=== PATIENT | female | born 1975 ===

== ENCOUNTER 2019-10-30 12:05 | Emergency (ER) | payer MEDICARE ==
[~2019-10-30] VITALS: Ht 160 cm; Wt 81.6 kg
[2019-10-30] MEDS ORDERED: ASPIRIN 81 MG CHEW TAB PO ONE (12:45)
[2019-10-30 13:20] LABS: BASOPHILS % 0.1 % (0.0-1.0); EOSINOPHILS # (AUTO) 0.1 (0.0-0.4); EOSINOPHILS % 0.7 % (0.0-6.0); HEMATOCRIT 27.7 % (34.2-44.1); HEMOGLOBIN 8.4 g/dL (12.0-16.0); LYMPHOCYTES # (AUTO) 1.4 (1.0-3.2); LYMPHOCYTES % 13.2 % (18.0-39.1); MEAN CORPUSCULAR HGB CONC 30.3 g/dL (31-35); MEAN CORPUSCULAR VOLUME 92.3 fL (81-99); MONOCYTES # (AUTO) 1.1 (0.2-0.8); MONOCYTES % 11.1 % (4.4-11.3); NEUTROPHILS # (AUTO) 7.5 (2.1-6.9); NEUTROPHILS % 73.1 % (38.7-80.0); PLATELET COUNT 266 x10e3/uL (140-360); RED CELL DISTRIBUTION WIDTH 14.6 % (11.7-14.4)
[2019-10-30 13:30] LABS: INR 0.85; PROTHROMBIN TIME 12.1 seconds (11.9-14.5)
--- NOTE | 2019-10-30 13:31 | Diagnostic Imaging Report ---
Examination: Single AP view of the chest. COMPARISON: None. INDICATION: Chest pain DISCUSSION: The lungs are well inflated. No focal consolidation, pleural effusion, or pneumothorax. Cardiomediastinal contour and pulmonary vasculature are within normal limits when accounting for AP technique. No acute osseous abnormalities. IMPRESSION: 1. No acute cardiopulmonary abnormalities. Signed by: Dr. Spencer Mendez M.D. on 10/30/2019 1:27 PM
[2019-10-30 13:40] LABS: ALBUMIN/GLOBULIN RATIO 0.4 (0.8-2.0); ANION GAP 10.3 mmol/L (8-16); CALCIUM 7.2 mg/dL (8.4-10.2); CREATININE, SERUM 2.05 mg/dL (0.57-1.11); POTASSIUM 3.3 mmol/L (3.5-5.1)
[2019-10-30 13:47] LABS: CREATINE KINASE MB 1.2 ng/mL (0-5.0)
[2019-10-30 14:13] LABS: PARTIAL THROMBOPLASTIN TIME 20.8 seconds (23.8-35.5)
--- NOTE | 2019-10-30 15:20 | Emergency Department Note ---
History of Present Illnes History of Present Illness Chief Complaint: Chest Pain History of Present Illness This is a 44 year old Unknown female c/o numbness and burning sensation to both arms that started last night also c/o chest tightness/pressure (11 hrs ago, constant) denies sob c/o n/v sudden onset states she had a . 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 Any updates have been documented here. Past Medical History Recent Fever: No Clinical Suspicion of Infectio: No New/Unexplained Change in Ment: No Past Medical History: Hypertension, [place], Hyperlipedemia Other Medical History: lupus kidney disease Past Surgical History: Hysterectomy Social History Smoking Cessation: Former smoker Counseling Performed: Yes Alcohol Use: None Any Illegal Drug Use: No TB Exposure/Symptoms: No Physically hurt or threatened: No Family History Family history of heart diseas: No Other Any Pre-Existing Lines (PICC,: No Review of Systems Review of Systems Constitutional: Reports no symptoms EENTM: Reports no symptoms Cardiovascular: Reports as per HPI Respiratory: Reports no symptoms Gastrointestinal: Reports no symptoms Genitourinary: Reports no symptoms Musculoskeletal: Reports as per HPI Integumentary: Reports no symptoms Neurological: Reports no symptoms Psychological: Reports no symptoms Endocrine: Reports no symptoms Hematological/Lymphatic: Reports no symptoms Physical Exam Related Data Allergies: Coded Allergies: lisinopril (Verified Allergy, Unknown, 10/30/19) Triage Vital Signs Vital Signs Date Time Temp Pulse Resp B/P (MAP) Pulse Ox O2 Delivery O2 Flow Rate FiO2 10/30/19 12:24 98.3 84 18 129/91 100 Room Air Vital signs reviewed: Yes Physical Exam CONSTITUTIONAL Constitutional: Present well-developed, Present well-nourished HENT HENT: Present normocephalic, Present atraumatic, Present oropharynx clear/moist, Present nose normal HENT L/R: Present left ext ear normal, Present right ext ear normal EYES Eyes: Reports PERRL, Reports conjunctivae normal NECK Neck: Present ROM normal PULMONARY Pulmonary: Present effort normal, Present breath sounds normal CARDIOVASCULAR Cardiovascular: Present regular rhythm, Present heart sounds normal, Present capillary refill normal, Present normal rate, Present other (reproducible tenderness mid chest) GASTROINTESTINAL Abdominal: Present soft, Present nontender, Present bowel sounds normal GENITOURINARY Genitourinary: Present exam deferred SKIN Skin: Present warm, Present dry MUSCULOSKELETAL Musculoskeletal: Present ROM normal NEUROLOGICAL Neurological: Present alert, Present oriented x 3, Present no gross motor or sensory deficits PSYCHOLOGICAL Psychological: Present mood/affect normal, Present judgement normal Results Laboratory Result Diagram: 10/30/19 1243 10/30/19 1243 Laboratory Laboratory Tests Test 10/30/19 12:43 White Blood Count 10.22 x10e3/uL (4.8-10.8) Red Blood Count 3.00 x10e6/uL (3.6-5.1) Hemoglobin 8.4 g/dL (12.0-16.0) Hematocrit 27.7 % (34.2-44.1) Mean Corpuscular Volume 92.3 fL (81-99) Mean Corpuscular Hemoglobin 28.0 pg (28-32) Mean Corpuscular Hemoglobin Concent 30.3 g/dL (31-35) Red Cell Distribution Width 14.6 % (11.7-14.4) Platelet Count 266 x10e3/uL (140-360) Neutrophils (%) (Auto) 73.1 % (38.7-80.0) Lymphocytes (%) (Auto) 13.2 % (18.0-39.1) Monocytes (%) (Auto) 11.1 % (4.4-11.3) Eosinophils (%) (Auto) 0.7 % (0.0-6.0) Basophils (%) (Auto) 0.1 % (0.0-1.0) Neutrophils # (Auto) 7.5 (2.1-6.9) Lymphocytes # (Auto) 1.4 (1.0-3.2) Monocytes # (Auto) 1.1 (0.2-0.8) Eosinophils # (Auto) 0.1 (0.0-0.4) Basophils # (Auto) 0.0 (0.0-0.1) Absolute Immature Granulocyte (auto 0.18 x10e3/uL (0-0.1) Prothrombin Time 12.1 seconds (11.9-14.5) Prothromb Time International Ratio 0.85 Activated Partial Thromboplast Time 20.8 seconds (23.8-35.5) Sodium Level 142 mmol/L (136-145) Potassium Level 3.3 mmol/L (3.5-5.1) Chloride Level 111 mmol/L (98-107) Carbon Dioxide Level 24 mmol/L (22-29) Anion Gap 10.3 mmol/L (8-16) Blood Urea Nitrogen 42 mg/dL (7-26) Creatinine 2.05 mg/dL (0.57-1.11) Estimat Glomerular Filtration Rate 27 ML/MIN (60-) BUN/Creatinine Ratio 20 (6-25) Glucose Level 89 mg/dL (74-118) Calcium Level 7.2 mg/dL (8.4-10.2) Total Bilirubin 0.1 mg/dL (0.2-1.2) Aspartate Amino Transf (AST/SGOT) 11 IU/L (5-34) Alanine Aminotransferase (ALT/SGPT) 22 IU/L (0-55) Alkaline Phosphatase 48 IU/L (40-150) Creatine Kinase 45 IU/L (29-168) Creatine Kinase MB 1.20 ng/mL (0-5.0) Troponin I 0.020 ng/mL (0-0.300) B-Type Natriuretic Peptide 30.8 pg/mL (0-100) Total Protein 3.6 g/dL (6.5-8.1) Albumin 1.0 g/dL (3.5-5.0) Globulin 2.6 g/dL (2.3-3.5) Albumin/Globulin Ratio 0.4 (0.8-2.0) Lab results reviewed: Yes Imaging Imaging results reviewed: Yes Impressions Examination: Single AP view of the chest. COMPARISON: None. INDICATION: Chest pain DISCUSSION: The lungs are well inflated. No focal consolidation, pleural effusion, or pneumothorax. Cardiomediastinal contour and pulmonary vasculature are within normal limits when accounting for AP technique. No acute osseous abnormalities. IMPRESSION: 1. No acute cardiopulmonary abnormalities. Signed by: Dr. Spencer Mendez M.D. 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 F/U PCP and Dr Tang tomorrow Assessment & Plan Final Impression: (1) Atypical chest pain (2) Anemia (3) CKD (chronic kidney disease) Depart Disposition: HOME, SELF-CARE Last Vital Signs Date Time Temp Pulse Resp B/P (MAP) Pulse Ox O2 Delivery O2 Flow Rate FiO2 10/30/19 13:51 98.4 75 20 138/82 98 10/30/19 12:24 Room Air Medications in the ED Aspirin 81 mg PRN ONCE PO ; Start 10/30/19 at 12:45; Stop 10/30/19 at 12:46; Status DC TIFFANIE RUFFIN MD Oct 30, 2019 15:20
--- NOTE | 2019-10-30 20:13 | Emergency Department Note ---
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 Any updates have been documented here. Past Medical History Recent Fever: No Clinical Suspicion of Infectio: No New/Unexplained Change in Ment: No Past Medical History: Hypertension, [place], Hyperlipedemia Other Medical History: lupus kidney disease Past Surgical History: Hysterectomy Social History Smoking Cessation: Never Smoker Counseling Performed: No Alcohol Use: None Any Illegal Drug Use: No Other Any Pre-Existing Lines (PICC,: No Review of Systems Review of Systems Constitutional: Reports no symptoms EENTM: Reports no symptoms Cardiovascular: Reports as per HPI Respiratory: Reports no symptoms Gastrointestinal: Reports no symptoms Genitourinary: Reports no symptoms Musculoskeletal: Reports as per HPI Integumentary: Reports no symptoms Neurological: Reports no symptoms Psychological: Reports no symptoms Endocrine: Reports no symptoms Hematological/Lymphatic: Reports no symptoms Physical Exam Related Data Allergies: Coded Allergies: lisinopril (Verified Allergy, Unknown, 10/30/19) Triage Vital Signs Vital Signs Date Time Temp Pulse Resp B/P (MAP) Pulse Ox O2 Delivery O2 Flow Rate FiO2 10/30/19 12:24 98.3 84 18 129/91 100 Room Air Vital signs reviewed: Yes Physical Exam CONSTITUTIONAL Constitutional: Present well-developed, Present well-nourished HENT HENT: Present normocephalic, Present atraumatic, Present oropharynx clear/moist, Present nose normal HENT L/R: Present left ext ear normal, Present right ext ear normal EYES Eyes: Reports PERRL, Reports conjunctivae normal NECK Neck: Present ROM normal PULMONARY Pulmonary: Present effort normal, Present breath sounds normal CARDIOVASCULAR Cardiovascular: Present regular rhythm, Present heart sounds normal, Present capillary refill normal, Present normal rate, Present other (reproducible tenderness to chest) GASTROINTESTINAL Abdominal: Present soft, Present nontender, Present bowel sounds normal GENITOURINARY Genitourinary: Present exam deferred SKIN Skin: Present warm, Present dry MUSCULOSKELETAL Musculoskeletal: Present ROM normal NEUROLOGICAL Neurological: Present alert, Present oriented x 3, Present no gross motor or sensory deficits PSYCHOLOGICAL Psychological: Present mood/affect normal, Present judgement normal Results Laboratory Result Diagram: 10/30/19 1243 10/30/19 1243 Laboratory Laboratory Tests Test 10/30/19 12:43 White Blood Count 10.22 x10e3/uL (4.8-10.8) Red Blood Count 3.00 x10e6/uL (3.6-5.1) Hemoglobin 8.4 g/dL (12.0-16.0) Hematocrit 27.7 % (34.2-44.1) Mean Corpuscular Volume 92.3 fL (81-99) Mean Corpuscular Hemoglobin 28.0 pg (28-32) Mean Corpuscular Hemoglobin Concent 30.3 g/dL (31-35) Red Cell Distribution Width 14.6 % (11.7-14.4) Platelet Count 266 x10e3/uL (140-360) Neutrophils (%) (Auto) 73.1 % (38.7-80.0) Lymphocytes (%) (Auto) 13.2 % (18.0-39.1) Monocytes (%) (Auto) 11.1 % (4.4-11.3) Eosinophils (%) (Auto) 0.7 % (0.0-6.0) Basophils (%) (Auto) 0.1 % (0.0-1.0) Neutrophils # (Auto) 7.5 (2.1-6.9) Lymphocytes # (Auto) 1.4 (1.0-3.2) Monocytes # (Auto) 1.1 (0.2-0.8) Eosinophils # (Auto) 0.1 (0.0-0.4) Basophils # (Auto) 0.0 (0.0-0.1) Absolute Immature Granulocyte (auto 0.18 x10e3/uL (0-0.1) Prothrombin Time 12.1 seconds (11.9-14.5) Prothromb Time International Ratio 0.85 Activated Partial Thromboplast Time 20.8 seconds (23.8-35.5) Sodium Level 142 mmol/L (136-145) Potassium Level 3.3 mmol/L (3.5-5.1) Chloride Level 111 mmol/L (98-107) Carbon Dioxide Level 24 mmol/L (22-29) Anion Gap 10.3 mmol/L (8-16) Blood Urea Nitrogen 42 mg/dL (7-26) Creatinine 2.05 mg/dL (0.57-1.11) Estimat Glomerular Filtration Rate 27 ML/MIN (60-) BUN/Creatinine Ratio 20 (6-25) Glucose Level 89 mg/dL (74-118) Calcium Level 7.2 mg/dL (8.4-10.2) Total Bilirubin 0.1 mg/dL (0.2-1.2) Aspartate Amino Transf (AST/SGOT) 11 IU/L (5-34) Alanine Aminotransferase (ALT/SGPT) 22 IU/L (0-55) Alkaline Phosphatase 48 IU/L (40-150) Creatine Kinase 45 IU/L (29-168) Creatine Kinase MB 1.20 ng/mL (0-5.0) Troponin I 0.020 ng/mL (0-0.300) B-Type Natriuretic Peptide 30.8 pg/mL (0-100) Total Protein 3.6 g/dL (6.5-8.1) Albumin 1.0 g/dL (3.5-5.0) Globulin 2.6 g/dL (2.3-3.5) Albumin/Globulin Ratio 0.4 (0.8-2.0) Lab results reviewed: Yes Imaging Imaging results reviewed: Yes Impressions Examination: Single AP view of the chest. COMPARISON: None. INDICATION: Chest pain DISCUSSION: The lungs are well inflated. No focal consolidation, pleural effusion, or pneumothorax. Cardiomediastinal contour and pulmonary vasculature are within normal limits when accounting for AP technique. No acute osseous abnormalities. IMPRESSION: 1. No acute cardiopulmonary abnormalities. Signed by: Dr. Spencer Mendez M.D. on 10/30/2019 1:27 PM Assessment & Plan Medical Decision Making MDM CHECK ECG LABS R/O STEMI/NSTEMI Reassessment Reassessment [facility], F/U PCP & CARDIOLOGY Assessment & Plan Final Impression: (1) Atypical chest pain (2) CKD (chronic kidney disease) (3) Anemia Depart Disposition: HOME, SELF-CARE Last Vital Signs Date Time Temp Pulse Resp B/P (MAP) Pulse Ox O2 Delivery O2 Flow Rate FiO2 10/30/19 13:51 98.4 75 20 138/82 98 10/30/19 12:24 Room Air Medications in the ED Aspirin 81 mg PRN ONCE PO ; Start 10/30/19 at 12:45; Stop 10/30/19 at 12:46; Status DC TIFFANIE RUFFIN MD Oct 30, 2019 20:13
== END 2019-10-30 15:15 | disposition home or self-care (01) ==
LOC: ER 14:04
DX: R07.89 Other chest pain (principal); N18.9 Chronic kidney disease, unspecified; D64.9 Anemia, unspecified; I10 Essential (primary) hypertension; E78.5 Hyperlipidemia, unspecified; M32.9 Systemic lupus erythematosus, unspecified; I25.2 Old myocardial infarction
CPT/HCPCS: 36415; 71045; 80053; 82550; 82553; 83880; 84484; 85025; 85610; 85730; 93005; 99283